=== PATIENT | female | born 1965 | race Two or more races ===

== ENCOUNTER 2016-12-05 16:38 | Emergency (ER) | payer OTHER ==
[2016-12-05 18:03] LABS: URINE BILIRUBIN NEGATIVE (NEGATIVE); URINE BLOOD TRACE (NEGATIVE); URINE GLUCOSE (UA) NEGATIVE (NEGATIVE); URINE LEUKOCYTE ESTERASE NEGATIVE (NEGATIVE); URINE NITRITE NEGATIVE (NEGATIVE); URINE PROTEIN NEGATIVE (NEGATIVE); URINE UROBILINOGEN NORMAL (0-1 mg/dl)
[2016-12-05 18:08] LABS: HCG,QUALITATIVE URINE NEGATIVE
[2016-12-05 18:09] LABS: URINE APPEARANCE CLEAR; URINE COLOR YELLOW
[2016-12-05 18:16] LABS: URINE BACTERIA 0; URINE EPITHELIAL CELLS 0-1 /hpf; URINE RBC RARE /hpf; URINE WBC 0-1 /hpf
[2016-12-05] MEDS ORDERED: MORPHINE SULFATE 2 MG/ML SYRINGE ONE (19:17)
[2016-12-05] MEDS ORDERED: MORPHINE SULFATE 4 MG/ML SYRINGE ONE ×2 (19:17→19:18)
[2016-12-05] MEDS ORDERED: LACTATED RINGERS 1,000 ML ONE (19:17)
[2016-12-05 19:19] LABS: ABSOLUTE NEUTROPHIL COUNT 7.4 K/mm3 (1.8-7.7); BASO % 0.3 % (0.2-1.0); EOS # 0.1 (0.0-0.5); EOS % 0.7 % (0.9-2.9); HEMATOCRIT 41.4 % (37.0-47.0); HEMOGLOBIN 13.8 gm/l (12.0-16.0); IMM NEUT% 0.3 % (0-1); LYMPH # 1.7 (1.0-4.8); LYMPH % 17.2 % (15-45); MEAN CELL VOLUME 93.7 fl (81.0-99.0); MEAN CORPUSCULAR HEMOGLOBIN 31.2 pg (27.0-31.0); MEAN CORPUSCULAR HGB CONC 33.3 g/dl (33.0-37.0); MEAN PLATELET VOLUME 10.4 fl (7.4-10.4); MONO # 0.7 (0.0-0.8); NEUT % 74.5 % (43-75); PLATELET COUNT 234 K/mm3 (130-400); RED CELL DISTRIBUTION WIDTH 12.1 % (11.5-14.5)
[2016-12-05 19:31] LABS: ALB/GLOB RATIO 1.4 (>1.0); ALBUMIN 3.9 gm/dL (3.5-5.7); CALCIUM 8.8 mg/dL (8.6-10.3)
[2016-12-05] MEDS: IOPAMIDOL 370 (76%) IV.SOLN 150 ML IV ONE (19:38)
[2016-12-05] MEDS ORDERED: PROCHLORPERAZINE 5 MG/ML 2 ML VIAL ONE (20:32)
--- NOTE | 2016-12-06 08:24 | CT ---
Exam Type: ABD/PELVIS W/ CON Date and Time: 12/05/2016 6:51 PM Clinical information: Low abdominal pain with cramping. Comparison: None Procedure: Imaging device: [employer] [address] scanner 1 mm axial images were obtained through the abdomen and pelvis. Stacked reconstructed 3, 4 and 5 mm images were photographed in the axial coronal and sagittal planes. No oral contrast was utilized for this examination. 125 ml of Isovue-370 was injected intravenously. Exam: with intravenous contrast. FINDINGS: Lung bases:The visualized lung bases appear to be appropriate with no mass, effusion or consolidation visualized. Liver: The liver is relatively homogeneous. A small focus of low attenuation adjacent to the falciform ligament likely reflects a region of focal fatty infiltration. Spleen: The spleen is homogeneous and does not appear to be enlarged. Gallbladder: Normal without enlargement or evidence of adjacent inflammatory changes. Pancreas: Normal without enlargement or evidence of adjacent inflammatory changes. Adrenal glands: Normal without enlargement or evidence of adjacent inflammatory changes. Abdominal aorta: The aorta is of normal caliber and appears to be without significant atherosclerotic disease. Kidneys: The kidneys appear to be symmetric in size with no perinephric inflammatory changes are identified. No current findings of hydronephrosis are seen. Bowel structures: The rectosigmoid colon appears to demonstrate circumferential thickening with adjacent infiltration of the mesentery with considerations including diverticulitis or focal colitis. No evidence of obstruction is seen. Appendix: Not well visualized. Bladder: The bladder is of normal contour. No wall thickening or significant distention is observed. Hernia: No abdominal wall or inguinal hernia is visualized on this examination. Adenopathy: No significant enlarged adenopathy is visualized. Osseous structures: Lumbar degenerative changes are present, particularly at L4-5. Pelvic structures: The uterus is enlarged with what appears to be a large posterior fundal uterine fibroid. Mild prominent pelvic venous vasculature is noted. IMPRESSION: 1. Suggested thickening of the sigmoid colon with infiltration of the adjacent mesenteric fat with considerations including diverticulitis or focal colitis. No evidence of obstruction is seen. No definite free air is observed. 2. A large fibroid uterus. 3. Nonvisualization of the appendix. 4. A probable subtle focus of focal fatty infiltration within the liver adjacent to the falciform ligament. 5. Prominent venous vasculature in the pelvis adjacent to the uterus. 6. Lumbar degenerative changes, particularly at L4-5. The findings were called to the emergency room at 202 hours, 12/05/2016, by [facility].
== END 2016-12-05 22:09 | disposition home or self-care (01) ==
LOC: ED 16:38
DX: R10.9 Unspecified abdominal pain (principal)
CPT/HCPCS: 83690; 81025; 85025; 80053; 81001; 74177; 96375; 99284 ×2; 96374; J0780; J2270 ×2; J7120; Q9967